=== PATIENT | female | born 1995 | race Caucasian/White ===

== ENCOUNTER 2021-07-07 16:51 | Emergency (ER) | payer OTHER ==
[~2021-07-07 16:51] MED LIST: BACTRIM DS TAB1 EACH PO; DIFLUCAN150 MG PO; IBUPROFEN600 MG PO; KEFLEX CAP 500500 MG PO; KEFLEX500 MG PO
[2021-07-07 18:23] LABS: HEMOGLOBIN 12.1 gm/dl (12.3-15.3); RED BLOOD COUNT 4.48 M/UL (4.00-5.10); WHITE BLOOD COUNT 8.3 K/UL (4.5-11.0)
[2021-07-07 18:45] LABS: BUN/CREATININE RATIO 10 (0-10)
== END 2021-07-07 20:14 | disposition home or self-care (01) ==
LOC: ER1 16:51
PROVIDERS: Emergency Medicine
DX: R10.30 Lower abdominal pain, unspecified (principal); F17.290 Nicotine dependence, other tobacco product, uncomplicated; R11.2 Nausea with vomiting, unspecified
CPT/HCPCS: 80053; 81001; 83690; 84703; 85025; 99284

== ENCOUNTER 2021-07-08 15:40 | Emergency (ER) | payer OTHER ==
[2021-07-08 16:39] LABS: RED BLOOD COUNT 4.65 M/UL (4.00-5.10); WHITE BLOOD COUNT 8.6 K/UL (4.5-11.0)
[2021-07-08 17:00] LABS: BUN/CREATININE RATIO 8 (0-10)
== END 2021-07-09 01:14 | disposition home or self-care (01) ==
LOC: ER1 15:40
PROVIDERS: Physician Assistant
DX: R10.30 Lower abdominal pain, unspecified (principal); F17.200 Nicotine dependence, unspecified, uncomplicated
CPT/HCPCS: 80053; 81001; 84703; 85025; 99284; Q9967

== ENCOUNTER 2021-07-19 17:55 | Emergency (ER) | payer OTHER | END 2021-07-19 18:30 | disposition home or self-care (01) | LOC: ER1 17:55 | DX: J02.9 Acute pharyngitis, unspecified (principal); R19.7 Diarrhea, unspecified; R11.10 Vomiting, unspecified; F17.290 Nicotine dependence, other tobacco product, uncomplicated | CPT/HCPCS: 99282 ==

== ENCOUNTER 2021-07-21 14:25 | Emergency (ER) | payer OTHER ==
[2021-07-21] MEDS ORDERED: MACRODANTIN100 MG PO (17:41)
[2021-07-21] MEDS ORDERED: ZOFRAN ODT 4 MG4 MG PO (17:41)
== END 2021-07-21 18:36 | disposition home or self-care (01) ==
LOC: ER1 14:25
DX: J06.9 Acute upper respiratory infection, unspecified (principal); N39.0 Urinary tract infection, site not specified; F17.290 Nicotine dependence, other tobacco product, uncomplicated
CPT/HCPCS: 81001; 84703; 99282; J7030

== ENCOUNTER 2021-07-23 18:18 | Emergency (ER) | payer OTHER ==
[~2021-07-23 18:18] MED LIST changes: +MACRODANTIN100 MG PO; +ZOFRAN ODT 4 MG4 MG PO
== END 2021-07-23 19:35 | disposition left against medical advice (07) ==
LOC: ER1 18:18
DX: Z53.21 Procedure and treatment not carried out due to patient leaving prior to being seen by health care provider (principal)

== ENCOUNTER 2021-07-24 14:59 | Emergency (ER) | payer OTHER | END 2021-07-24 15:40 | disposition left against medical advice (07) | LOC: ER1 14:59 | DX: R11.2 Nausea with vomiting, unspecified (principal); R19.7 Diarrhea, unspecified; K59.00 Constipation, unspecified; F17.290 Nicotine dependence, other tobacco product, uncomplicated | CPT/HCPCS: 99283 ==

== ENCOUNTER 2021-07-27 17:36 | Emergency (ER) | payer OTHER ==
[2021-07-28] MEDS ORDERED: AMITIZA8 MCG PO (02:32)
[2021-07-28] MEDS ORDERED: CHRONULAC20 GM/30 M PO (02:32)
== END 2021-07-28 05:38 | disposition home or self-care (01) ==
LOC: ER1 17:36
DX: K59.00 Constipation, unspecified (principal); Z79.899 Other long term (current) drug therapy
CPT/HCPCS: 74018; 81001; 84703; 99283

== ENCOUNTER 2021-07-31 20:33 | Emergency (ER) | payer OTHER ==
[~2021-07-31 20:33] MED LIST changes: +AMITIZA8 MCG PO; +CHRONULAC20 GM/30 M PO
[2021-08-01] MEDS ORDERED: LODINE CAP 300300 MG PO (01:10)
[2021-08-01] MEDS ORDERED: VENTOLIN HFA 66.7 GM INH (01:10)
== END 2021-08-01 01:30 | disposition home or self-care (01) ==
LOC: ER1 20:33
DX: J02.9 Acute pharyngitis, unspecified (principal); R11.2 Nausea with vomiting, unspecified; Z20.822 Contact with and (suspected) exposure to COVID-19
CPT/HCPCS: 71045; 81001; 84703; 87081; 87086; 87880; 99284; U0003

== ENCOUNTER 2021-08-03 17:07 | Emergency (ER) | payer OTHER ==
[~2021-08-03 17:07] MED LIST changes: +LODINE CAP 300300 MG PO; +VENTOLIN HFA 66.7 GM INH
[2021-08-03] MEDS ORDERED: CEPHALEXIN500 MG PO (20:19)
== END 2021-08-03 19:55 | disposition home or self-care (01) ==
LOC: ER1 17:07
DX: L03.115 Cellulitis of right lower limb (principal); Z78.0 Asymptomatic menopausal state; F17.290 Nicotine dependence, other tobacco product, uncomplicated
CPT/HCPCS: 99283